=== PATIENT | female | born 1950 | race Two or more races ===

== ENCOUNTER 2018-05-22 05:51 | Observation (INO) | payer MEDICARE, BC ==
--- NOTE | 2018-05-22 06:00 | Emergency Department Record ---
History of Present Illness - General Chief Complaint: Chest Pain Stated Complaint: CHEST PAIN Source: Patient, Family Mode of Arrival: Ambulatory Limitations: No limitations - History of Present Illness Initial Comments: 68 yo female presents with chest pain. The onset was about 1am. The discomfort woke her from her sleep. She initially though it was an indigestion like feeling. It is also sharp. The pain is constant. No shortness of breath or sweating. It does not hurt more to breath or move. The pain location is over the left chest. She has had some radiation in the neck. No pain in the back. She denies any history of recent similar pain. She has a history of DM, elevated cholesterol, and HTN. No history of CAD, DVT or PE. No other recent changes in her health. PCP is Dr Taylor . Complaint: Chest pain -: Hour(s) (5) Onset: During rest Pain Location: Left chest Pain Radiation: Neck Severity: Moderate Quality: Sharp Consistency: Constant Improves With: Nothing Worsens With: Nothing Context: Other Anginal Symptoms: Other Treatments Prior to Arrival: None - Related Data Home Medications Medication Instructions Recorded Confirmed Last Taken Insulin Degludec [Tresiba 1 unit SC ASDIR 05/22/18 05/22/18 Unknown Flextouch U-100] Allergies Allergy/AdvReac Type Severity Reaction Status Date / Time No Known Drug Allergies Allergy Unverified 12/31/15 11:30 Review of Systems Constitutional: Denies: Chills, Fever, Malaise, Weakness Eyes: Denies: Eye discharge ENT: Denies: Congestion, Throat pain Respiratory: Denies: Cough, Dyspnea, Hemoptysis, Wheezes Cardiovascular: Reports: Chest pain. Denies: Arrhythmia, Edema, Palpitations, Syncope Endocrine: Denies: Fatigue, Polydipsia, Polyuria Gastrointestinal: Denies: Abdominal pain, Diarrhea, Nausea, Vomiting Genitourinary: Denies: Dysuria, Urgency Musculoskeletal: Reports: Neck pain. Denies: Arthralgia, Back pain, Joint swelling, Myalgia Skin: Denies: Change in color, Rash Neurological: Denies: Confusion, Headache Psychiatric: Denies: Anxiety Hematological/Lymphatic: Denies: Easy bleeding, Easy bruising, Swollen glands Past Medical History - SOCIAL HISTORY Smoking Status: Never smoker - RESPIRATORY Hx Respiratory Disorders: No - CARDIOVASCULAR Hx Cardio Disorders: Yes Hx Hypertension: Yes Comment:: high cholesterol - NEURO Hx Neuro Disorders: No - GI Hx GI Disorders: No - Hx Genitourinary Disorders: No - ENDOCRINE Hx Endocrine Disorders: Yes Hx Diabetes: Yes - MUSCULOSKELETAL Hx Musculoskeletal Disorders: No - PSYCH Hx Psych Problems: No - HEMATOLOGY/ONCOLOGY Hx Cancer: Yes Hx Radiation Therapy: Yes (L breast) Hx Blood Transfusions: Yes Hx Blood Transfusion Reaction: No Physical Exam - General General Appearance: Alert, Oriented x3, Cooperative, No acute distress Limitations: No limitations - Head Head exam: Atraumatic, Normal inspection - Eye Eye exam: Normal appearance, PERRL. negative: Conjunctival injection, Scleral icterus - ENT ENT exam: Normal exam, Mucous membranes moist Ear exam: Normal external inspection Nasal Exam: Normal inspection Mouth exam: Normal external inspection - Neck Neck exam: Normal inspection, Full ROM. negative: Tenderness - Respiratory Respiratory exam: Normal lung sounds bilaterally. negative: Accessory muscle use, Chest wall tenderness, Decreased breath sounds, Prolonged expiratory, Respiratory distress, Rhonchi, Stridor, Wheezes - Cardiovascular Cardiovascular Exam: Regular rate, Normal rhythm, Normal heart sounds Peripheral Pulses: 2+: Radial (R), Radial (L) - GI/Abdominal GI/Abdominal exam: Soft. negative: Tenderness - Rectal Rectal exam: Deferred - exam: Deferred - Extremities Extremities exam: Normal inspection, Full ROM, Normal capillary refill. negative: Calf tenderness, Joint swelling, Pedal edema, Tenderness - Back Back exam: Reports: Normal inspection, Full ROM. Denies: CVA tenderness (R), CVA tenderness (L), Muscle spasm, Rash noted, Tenderness - Neurological Neurological exam: Alert, Normal gait, Oriented X3 - Psychiatric Psychiatric exam: Normal affect, Normal mood. negative: Agitated, Anxious - Skin Skin exam: Dry, Intact, Normal color, Warm Course - Reevaluation(s) Reevaluation #1: No prior EKG on the EMR. 05/22/18 06:00 05/22/18 06:03 EKG #1 0558 NSR Rate is 76 [place] is normal Intervals are normal ST No acute changes, artifact noted. Repeat EKG requests No priors. 05/22/18 06:06 EKG #2 0601 NSR Rate is 77 [place] is normal Intervals are normal ST are normal Prior is #1, artifact resolved. Normal EKG 08/13/18 06:18 No acute changes on the CBC 05/22/18 06:37 The patient got relief with the nitro The BMP was negative 05/22/18 06:37 The Troponin is negative 05/22/18 06:43 The D-Dimer is negative 05/22/18 06:53 The case was discussed with Dr De La Rosa The patient will be admitted for chest pain with serial enzymes and cardiology consultation Medical Decision Making - Lab Data Result diagrams: 05/22/18 06:00 05/22/18 06:00 Disposition Disposition: Admit Clinical Impression: Chest pain Disposition: Still a Patient at [facility] Decision to Admit: Admit from ER Decision to Admit Date: 05/22/18 Decision to Admit Time: 06:43 Condition: (1) Good Forms: Patient Portal Access Time of Disposition: 06:43 Quality - Quality Measures Quality Measures: N/A - Blood Pressure Screening Does Patient Have Any of the Following: Active Dx of HTN Blood Pressure Classification: Pre-Hypertensive BP Reading Systolic Measurement: 135 Diastolic Measurement: 81 Screening for High Blood Pressure: Patient Exclusion, Hx of HTN [G9744]
[2018-05-22] MEDS ORDERED: ASPIRIN 81 MG CHEWABLE TABLET PO ONE (06:03)
[2018-05-22] MEDS ORDERED: NITROGLYCERIN 0.4MG SL TABLET #25 BTL SL ONE (06:07)
[2018-05-22 06:15] LABS: BASO % 0.4 % (0-6); EOS % 5.5 % (0-6); HEMOGLOBIN 14.4 gm/dl (11.6-16.0); LYMPH % 41.6 % (16-45); MEAN CORPUSCULAR HEMOGLOBIN 32.2 pg (27-33); MEAN CORPUSCULAR HGB CONC 34.3 g/dl (32-36); MEAN PLATELET VOLUME 9.5 fl (7.4-10.4); MONO % 11.5 % (0-9); PLATELET COUNT 226 K/uL (130-400); RED BLOOD COUNT 4.47 M/uL (3.80-5.40); RED CELL DISTRIBUTION WIDTH 12.5 % (11.5-14.5); WHITE BLOOD COUNT W/O DIFF 5.7 K/uL (4.2-12.2)
[2018-05-22 06:26] LABS: PARTIAL THROMBOPLASTIN TIME 26.4 SECONDS (24.5-39.1); PROTHROMBIN TIME (PATIENT) 10.7 SECONDS (9.5-12.1)
[2018-05-22 06:29] LABS: BLOOD UREA NITROGEN 15 mg/dL (8-23); CREATININE 0.5 mg/dL (0.5-0.9); EST GLOMERULAR FILTRATION RATE > 60 mL/min
[2018-05-22 06:30] LABS: TOTAL PROTEIN 7.4 g/dL (6.6-8.7)
[2018-05-22 06:32] LABS: GLUCOSE,RANDOM 156 mg/dL (74-109)
[2018-05-22 06:34] LABS: ALT/SGPT 18 U/L (<33)
[2018-05-22 06:35] LABS: ALB/GLOB RATIO 1.2 (1.1-1.8); ALKALINE PHOSPHATASE 49 U/L (35-104); AST/SGOT 15 U/L (10.0-35.0)
[2018-05-22] MEDS ORDERED: ACETAMINOPHEN 500 MG TABLET PO PRN (07:47)
[2018-05-22] MEDS ORDERED: NITROGLYCERIN 0.4MG SL TABLET #25 BTL SL PRN (07:47)
[2018-05-22] MEDS ORDERED: HYDROCHLOROTHIAZIDE 12.5 MG CAPSULE PO SCH (10:00)
[2018-05-22] MEDS ORDERED: INSULIN DEGLUDEC 65 UNIT SC SCH (10:00)
[2018-05-22] MEDS ORDERED: LORATADINE 10 MG TABLET PO SCH (10:00)
[2018-05-22] MEDS ORDERED: LISINOPRIL 20 MG TABLET PO SCH (10:00)
[2018-05-22] MEDS ORDERED: GLIMEPIRIDE 2 MG TABLET PO SCH (10:00)
--- NOTE | 2018-05-22 16:10 | Discharge Note ---
VTE H&P Assessment - Risk for VTE Risk for VTE: No Risk Level: Very Low Risk Assessment Date: 05/22/18 Risk Assessment Time: 08:00 VTE Orders Placed or Will Be Placed: No VTE Reason for No Prophylaxis: Not Indicated Discharge Medications - Discharge Medications Prescriptions: Ibuprofen 200 mg Tablet [Motrin 200Mg] 400 mg PO Q6H PRN #30 tab PRN Reason: Anesthesia Home Medications: Ambulatory Orders Cetirizine HCl 10 mg PO DAILY 10/22/14 [Last Taken 12/30/14] Glimepiride 4 mg PO BID 10/22/14 [Last Taken 12/30/14] Aspirin Chewable 81 mg PO QHS 12/30/14 [Last Taken 12/30/14] Atorvastatin Calcium [Lipitor] 80 mg PO QHS 12/30/14 [Last Taken Unknown] Hydrochlorothiazide [Hctz] 12.5 mg PO DAILY 05/22/18 [Last Taken Unknown] Ibuprofen 200 mg Tablet [Motrin 200Mg] 400 mg PO Q6H PRN #30 tab 05/22/18 [Last Taken Unknown] Insulin Degludec [Tresiba Flextouch U-100] 65 unit SC DAILY 05/22/18 [Last Taken Unknown] Lisinopril 40 mg PO DAILY 05/22/18 [Last Taken Unknown] Discharge Note - Date Date of Discharge Note: 05/22/18 Disposition: Home, Self-Care Condition: (1) Good Additional Instructions: follow up with Dr. Jara in one week follow up with Dr. Paz as scheduled use motrin 200 mg OTC 2 pills three times a day for her chest pain Forms: Patient Portal Access
[2018-05-22] MEDS ORDERED: ATORVASTATIN 20 MG TABLET PO SCH (22:00)
[2018-05-22] MEDS ORDERED: ASPIRIN 81 MG TABEC PO SCH (22:00)
--- NOTE | 2018-05-23 07:21 | History and Physical Report ---
DATE: 05/22/2018 CHIEF COMPLAINT: Chest pain. HISTORY OF PRESENT ILLNESS: This 68-year-old female presented to the emergency department at 1 a.m. She stated that she developed sharp chest pain that woke her up from sleep and lasted about half an hour. When she got to the emergency department, she had 1 nitroglycerin and 4 aspirin and was feeling much better. When she came to the floor, she moved her shoulders around and it caused the sharp pain to reproduce but that has since disappeared. When I rotated her shoulders, she felt pain in her left chest area. She denies being short of breath or sweaty. The pain radiates somewhat up into her neck but mostly is localized to the left chest and left anterior chest wall. She does have a history of diabetes mellitus, elevated cholesterol, hypertension. No previous history of CAD, DVT, or PE. Primary care physician is Dr. Sanders. PAST MEDICAL HISTORY: Diabetes mellitus, hypercholesterolemia, hypertension. PAST SURGICAL HISTORY: Left breast lumpectomy, left knee replacement, corrective laser surgery on both eyes. MEDICATIONS: 1. Hydrochlorothiazide 12.5 daily. 2. Tresiba 65 units daily. 3. Cetirizine 10 mg daily. 4. Lipitor 80 mg at h.s. 5. Aspirin 81 mg a day. 6. Glimepiride 4 mg b.i.d. 7. Lisinopril 40 mg a day. ALLERGIES: No known allergies. FAMILY/PSYCHOSOCIAL HISTORY: Unremarkable. No smoking or alcohol or drug use. REVIEW OF SYSTEMS: HEENT: No upper respiratory infection symptoms, cough, cold, or congestion. Cardiovascular: She has chest pain, anterior pain that seems to be reproducible with rotating her shoulders. Respiratory: Denies being short of breath, cough, cold, or congestion. Gastrointestinal: No nausea, vomiting, diarrhea, black stools, or bloody stools. Genitourinary: No dysuria, hematuria, frequency, or burning on urination. Musculoskeletal: She denies any joint or bone abnormalities. Neurological: No CVA, paralysis, or paresthesias. 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 Endocrine: She has diabetes mellitus. No hypothyroidism. Integument: No rash, ulcers, change in moles, or yellow skin. PHYSICAL EXAMINATION: VITALS: Height 5 feet 2 inches, weight 166 pounds. Temperature 98.0, pulse 85, blood pressure 120/62, respiratory rate 16, pulse ox 98% on room air. HEENT: Pupils are equal, round, and reactive to light and accommodation. Extraocular muscles are intact. Throat is clear. Nose is clear. Tympanic membranes are kenny. NECK: Supple. No jugular venous distention. No hepatojugular reflux. No carotid bruits. Thyroid is smooth. CARDIOVASCULAR: Regular rate and rhythm without murmurs, clicks, rubs, or gallops. RESPIRATORY: Clear to auscultation and percussion. ABDOMEN: Soft, nontender. No hepatosplenomegaly, no masses, no tenderness. Bowel sounds are active. EXTREMITIES: No pitting edema. No cyanosis, no clubbing. Full range of motion. Peripheral pulses are good. BREASTS: Exam deferred. GYNECOLOGICAL: Exam deferred. RECTAL: Exam deferred. NEUROLOGIC: Cranial nerves II-XII intact. No gross defects. Sensation normal, strength normal. Deep tendon reflexes equal bilaterally with Babinski negative. MENTAL STATUS: Alert and oriented x3. MUSCULOSKELETAL: There is pain in the left chest area when I rotate her shoulders. IMPRESSION: 1. Chest pain. 2. Anterior chest wall syndrome. 3. Diabetes mellitus. 4. Hypertension. 5. Hypercholesterolemia. PLAN: Cardiology consult with the PA who is here. They are planning to do an exercise stress test. [facility]
--- NOTE | 2018-05-23 07:40 | RADIOLOGY REPORT ---
EXAM: FRONTAL AP CHEST HISTORY: LEFT SIDED CHEST PAIN AND DIFFICULTY IN BREATHING FOR FIVE HOURS. TECHNIQUE: A single AP portable view of the chest was obtained. Comparison: AP portable chest 10/20/12. FINDINGS: The heart size is within normal limits. Calcification and mild torsion of the aorta. No definite acute infiltrate is seen. No pleural effusion or pneumothorax evident. IMPRESSION: 1. CALCIFICATION AND MILD TORSION OF THE AORTA. 2. NO ACUTE INFILTRATE IDENTIFIED. JOB NUMBER: [id number] MTDD
--- NOTE | 2018-05-23 09:30 | Cardiology Consult ---
DATE OF CONSULTATION: 05/22/2018 This is a very pleasant 68-year-old female with no previous history of coronary artery disease. The patient presented to [facility] due to chest pain. The patient states she woke up about 1:00 a.m. this morning, she described this as sharp, it lasted until she came into the hospital at 5:00 a.m. where she was given an aspirin and nitroglycerin which she said relieved the pain. The patient also complained of some left shoulder pain previously, this is reproducible with manipulation. The patient denies any increasing shortness of breath, lightheadedness, dizziness, orthopnea, or PND. She denies any significant lower extremity swelling. She states maybe several months ago she may have had an episode of chest pressure, but had not been having any routine symptoms of chest pain. PAST MEDICAL HISTORY: Significant for diabetes mellitus, hyperlipidemia and hypertension. She has no previous history of coronary artery disease or pulmonary embolism. PAST SURGICAL HISTORY: Left total knee arthroplasty. HOME MEDICATIONS: Include Tresiba for insulin, aspirin 81 mg daily, Lisinopril 40 mg daily, Lipitor 80 mg daily, and Hydrochlorothiazide 12.5 mg daily. ALLERGIES: No allergies to medicines noted. SOCIAL HISTORY: Negative for tobacco abuse. Denies alcohol. Denies illicit drug use. FAMILY HISTORY: Negative for any history of premature coronary artery disease. REVIEW OF SYSTEMS: Constitutional - Denies any recent fever, chills or weakness. HEENT - No complaints of any recent headaches, change in vision or change in hearing. No difficulty swallowing. Respiratory - Denies any cough. No increased shortness of breath. Cardiovascular - Positive for chest pain. Negative for palpitations or syncope. Endocrine - No polydipsia or polyuria. No heat or cold intolerance. Gastrointestinal - Denies abdominal pain, diarrhea , nausea, vomiting or melena. Genitourinary - Denies any dysuria. Musculoskeletal - Positive right neck sided pain. Denies back pain. Skin - No rash. Neurological - Denies any headaches or confusion. Psychiatric - Denies any anxiety or depression. Hematological - Denies any easy bruising or bleeding. PHYSICAL EXAMINATION: Vital signs - Blood pressure 135/81, pulse 77 b.p.m. GENERAL: The patient is alert and oriented times three, cooperative. She does not appear to be in any acute distress. HEENT: Normocephalic, atraumatic. Extraocular movements are intact. Pupils are equal and round. NECK: Supple without lymphadenopathy, thyromegaly or bruits. CARDIAC: Regular rate and rhythm. No significant murmurs are appreciated. LUNGS: Clear to auscultation in the lung hensley without rales, rhonchi or wheeze. ABDOMEN: Soft, nontender. Bowel sounds are present in all four quadrants. EXTREMITIES: No edema. 2+ pulses bilaterally. SKIN: Warm and dry. DIAGNOSTIC STUDIES: EKG demonstrates sinus rhythm at a rate of 76 b.p.m. No acute changes noted. LABORATORY: Troponin negative times two. D-dimer negative. WBC 5.7, hemoglobin 14.4, hematocrit 42, platelet count 226, sodium 139, potassium 3.5, chloride 99, CO2 of 27, BUN 15, creatinine 0.5, glucose 156. ASSESSMENT/PLAN: 1. CHEST PAIN. THE PATIENT'S EKG DEMONSTRATES NORMAL SINUS RHYTHM. SHE DOES HAVE SIGNIFICANT CARDIAC RISK FACTORS. WE WILL PLAN BASIC TREADMILL STRESS TEST , IF THIS DOES NOT DEMONSTRATE ANY SIGNIFICANT EKG CHANGES OR SYMPTOMS WE WILL PLAN TO FOLLOW-UP WITH THE PATIENT IN ONE WEEK IN CLINIC TO REASSESS SYMPTOMS. 2. HYPERTENSION, MONITOR. 3. HYPERLIPIDEMIA PER PRIMARY CARE. 4. DIABETES MELLITUS PER PRIMARY CARE. 5. PATIENT DID UNDERGO A ALMAZ PROTOCOL BASIC TREADMILL STRESS TEST. SHE WAS ABLE TO ACHIEVE GREATER THAN 85% OF MAXIMUM PREDICTED HEART RATE WITHOUT ANY SYMPTOMS. EKG WAS NEGATIVE FOR ANY STRESS INDUCED ISCHEMIA, HOWEVER, PATIENT'S HEART RATE DID ELEVATE TO 244/92. THE PATIENT WILL MONITOR BLOOD PRESSURE AT HOME AND BRING A BLOOD PRESSURE LOG TO SEE IF ANTIHYPERTENSIVE REGIMEN NEEDS TO BE ADJUSTED. THE CASE WAS DISCUSSED WITH DR. MILLS WHO AGREES WITH THE ABOVE. FURTHER RECOMMENDATIONS AT HER OFFICE VISIT. THE PATIENT WAS INSTRUCTED TO CONTACT OUR OFFICE IF SHE SHOULD HAVE ANY FURTHER QUESTIONS OR CONCERNS. JOB NUMBER: [id number] [facility]
--- NOTE | 2018-05-24 20:19 | Stress Test Report ---
DATE OF TEST: 05/22/18 Ms. Broussard is 68 years old, undergoing exercise stress testing for chest pain. Her resting heart rate is 93 beats per minute and blood pressure 178/100. She exercised for 5 minutes, 23 seconds without cardiac complaint. Her maximum heart rate was 150, which is 98% of age-predicted maximum heart rate. Peak blood pressure was 244/92, which is a hypertensive response. Continuous ECG monitoring demonstrated no ST/T changes suggestive of ischemia or arrhythmia. FINAL IMPRESSION: 1. ASYMPTOMATIC MAXIMAL ALMAZ STRESS COMPLETING 7 METS WITH NO ECG EVIDENCE FOR ISCHEMIA OR ARRHYTHMIA. 2. HYPERTENSIVE RESPONSE TO EXERCISE WITH PEAK BLOOD PRESSURE OF 244/92. 3. BELOW-AVERAGE PHYSICAL FITNESS FOR AGE. JOB NUMBER: [id number] [facility]
== END 2018-05-22 16:45 | disposition home or self-care (01) ==
LOC: ER 05:51 → MEDSURG 07:35
PROVIDERS: ADMIT Emergency Medicine; ATTEND Emergency Medicine
DX: R07.9 Chest pain, unspecified (principal); I10 Essential (primary) hypertension; E78.00 Pure hypercholesterolemia, unspecified; E11.9 Type 2 diabetes mellitus without complications; Z85.3 Personal history of malignant neoplasm of breast
CPT/HCPCS: 71045; 80053; 84484; 85025; 85379; 85610; 85730; 93005; 93010; 93017; 94760; 99222; 99285

== ENCOUNTER 2019-07-30 18:41 | Emergency (ER) | payer MEDICARE, BC ==
[2019-07-30] MEDS ORDERED: AMOXICILLIN/POTASSIUM CLAV 875MG/125MG TABLET PO ONE (18:56)
--- NOTE | 2019-07-30 18:57 | Emergency Department Record ---
History of Present Illness - General Stated Complaint: CAT BITE Time Seen by Provider: 07/30/19 18:56 Source: Patient Mode of Arrival: Ambulatory Limitations: No limitations - History of Present Illness Initial Commments: pt was holding her cat when it was startled and bit her on the leg. the cat's shots are up to date. -: Minutes(s) Extremity Location: Right: Lower leg Place: Home Context: Other Associated Symptoms: None Treatments Prior to Arrival: Bandage - [place] Coma Scale Eye Response: (4) Open spontaneously Motor Response: (6) Obeys commands Verbal Response: (5) Oriented [place] Total: 15 - Related Data Previous Rx's Medication Instructions Recorded Ibuprofen 200 mg Tablet [Motrin 400 mg PO Q6H PRN #30 tab 05/22/18 200Mg] Amoxicillin/Potassium Clav 1 tab PO BID #14 tab 07/30/19 [Augmentin 875-125 Tablet] Allergies Allergy/AdvReac Type Severity Reaction Status Date / Time No Known Drug Allergies Allergy Unverified 12/31/15 11:30 Review of Systems Reviewed: No additional complaints except as noted below Constitutional: Reports: As per HPI. Denies: Chills, Fever, Malaise, Night sweats, Weakness, Weight change Eyes: Reports: As per HPI. Denies: Eye discharge, Eye pain, Photophobia, Vision change ENT: Reports: As per HPI. Denies: Congestion, Dental pain, Ear pain, Epistaxis, Hearing loss, Throat pain Respiratory: Reports: As per HPI. Denies: Cough, Dyspnea, Hemoptysis, Stridor, Wheezes Cardiovascular: Reports: As per HPI. Denies: Arrhythmia, Chest pain, Dyspnea on exertion, Edema, Murmurs, Orthopnea, Palpitations, Paroxysmal nocturnal dyspnea, Rheumatic Fever, Syncope Endocrine: Reports: As per HPI. Denies: Fatigue, Heat or cold intolerance, Polydipsia, Polyuria Gastrointestinal: Reports: As per HPI. Denies: Abdominal pain, Constipation, Diarrhea, Hematemesis, Hematochezia, Melena, Nausea, Vomiting Genitourinary: Reports: As per HPI. Denies: Abnormal menses, Discharge, Dyspareunia, Dysuria, Frequency, Hematuria, Incontinence, Retention, Urgency Musculoskeletal: Reports: As per HPI. Denies: Arthralgia, Back pain, Gout, Joint swelling, Myalgia, Neck pain Skin: Reports: As per HPI. Denies: Bruising, Change in color, Change in hair/nails, Lesions, Pruritus, Rash Neurological: Reports: As per HPI. Denies: Abnormal gait, Confusion, Headache, Numbness, Paresthesias, Seizure, Tingling, Tremors, Vertigo, Weakness Psychiatric: Reports: As per HPI. Denies: Anxiety, Auditory hallucinations, Depression, Homicidal thoughts, Suicidal thoughts, Visual hallucinations Hematological/Lymphatic: Reports: As per HPI. Denies: Anemia, Blood Clots, Easy bleeding, Easy bruising, Swollen glands Past Medical History - SOCIAL HISTORY Smoking Status: Never smoker Drug Use: None - RESPIRATORY Hx Respiratory Disorders: No - CARDIOVASCULAR Hx Cardio Disorders: Yes Hx Hypertension: Yes Comment:: high cholesterol - NEURO Hx Neuro Disorders: No - GI Hx GI Disorders: No - Hx Genitourinary Disorders: No - ENDOCRINE Hx Endocrine Disorders: Yes Hx Diabetes: Yes - MUSCULOSKELETAL Hx Musculoskeletal Disorders: No - PSYCH Hx Psych Problems: No - HEMATOLOGY/ONCOLOGY Hx Hematology/Oncology Disorders: Yes Hx Cancer: Yes Hx Radiation Therapy: Yes (L breast) Hx Blood Transfusions: Yes Hx Blood Transfusion Reaction: No Family Medical History Hx HTN: Mother Physical Exam - General General Appearance: Alert, Oriented x3, Cooperative, Mild distress - Head Head exam: Normal inspection - Eye Eye exam: Normal appearance, PERRL, EOMI Pupils: Normal accommodation - ENT ENT exam: Normal exam, Mucous membranes moist, Normal external ear exam, Normal orophraynx Ear exam: Normal external inspection. negative: External canal tenderness Nasal Exam: Normal inspection. negative: Discharge, Sinus tenderness Mouth exam: Normal external inspection, Tongue normal Teeth exam: Normal inspection. negative: Dental caries Throat exam: Normal inspection. negative: Tonsillar erythema, Tonsillar exudate - Neck Neck exam: Normal inspection, Full ROM. negative: Tenderness - Respiratory Respiratory exam: Normal lung sounds bilaterally. negative: Respiratory distress - Cardiovascular Cardiovascular Exam: Regular rate, Normal rhythm, Normal heart sounds - GI/Abdominal GI/Abdominal exam: Soft, Normal bowel sounds. negative: Tenderness - Rectal Rectal exam: Deferred - exam: Deferred - Extremities Extremities exam: Normal inspection, Full ROM, Normal capillary refill. negative: Tenderness - Back Back exam: Reports: Normal inspection, Full ROM. Denies: Muscle spasm, Rash noted, Tenderness - Neurological Neurological exam: Alert, CN II-XII intact, Normal gait, Oriented X3 - Psychiatric Psychiatric exam: Normal affect, Normal mood - Skin Skin exam: Dry, Intact, Normal color, Warm Type of lesion: Bite/sting Distribution of rash: RLE Disposition Disposition: Discharge Clinical Impression: Cat bite involving extremity Disposition: Home, Self-Care Condition: (1) Good Instructions: Animal Bite (ED) Additional Instructions: recheck tomorrow.by family doctor. return sooner if worse. Prescriptions: Amoxicillin/Potassium Clav [Augmentin 875-125 Tablet] 1 tab PO BID #14 tab Quality - Quality Measures Quality Measures: N/A - Blood Pressure Screening Does Patient Have Any of the Following: Active Dx of HTN Systolic Measurement: ~ Screening for High Blood Pressure: Patient Exclusion, Hx of HTN [G9744]
== END 2019-07-30 19:15 | disposition home or self-care (01) ==
LOC: ER 18:41
DX: S81.851A Open bite, right lower leg, initial encounter (principal); W55.01XA Bitten by cat, initial encounter; Y92.009 Unspecified place in unspecified non-institutional (private) residence as the place of occurrence of the external cause; I10 Essential (primary) hypertension
CPT/HCPCS: 99283